=== PATIENT | male | born 1950 | race Caucasian/White ===

== ENCOUNTER → 2019-06-18 13:18 | Outpatient (CLI) | payer MEDICARE, SELFPAY ==
--- NOTE | 2019-06-18 13:24 | XR_ITS ---
PROCEDURE: XR KNEE RT 4V CLINICAL INDICATION: Rt knee pain Right knee pain with popping COMPARISON: KNEE3R KNEE-3 VIEWS-RT from 03/17/2015 [id number] KNEE-4 OR 5 VIEWS-LT from 05/13/2015 FINDINGS: No fracture or dislocation. No lytic or blastic change. There is normal mineralization. There are moderate osteoarthritic changes of the medial compartment and patellofemoral joint. 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 MRI may confirm location. The medial joint space has slightly decreased in height compared to the previous exam with mild varus angulation of the tibia. Suspect a small knee joint effusion. Other findings:None. 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
== END ==
PROVIDERS: PCP Internal Medicine Adolescent Medicine; Visit Provider Orthopaedic Surgery
DX: M25.561 Pain in right knee (principal)
CPT/HCPCS: 73564

== ENCOUNTER → 2020-12-08 09:44 | Outpatient (CLI) | payer MEDICARE, SELFPAY ==
--- NOTE | 2020-12-08 09:52 | XR_ITS ---
PROCEDURE: XR KNEE RT 3V CLINICAL INDICATION: ACUTE PAIN OF RT KNEE COMPARISON: CR KNEE3R KNEE-3 VIEWS-RT from 03/17/2015 CR [id number] KNEE-4 OR 5 VIEWS-LT from 05/13/2015 CR XR KNEE RT 4V from 06/18/2019 FINDINGS: No fracture or dislocation. No lytic or blastic change. There is normal mineralization. Moderate osteoarthritic changes are present involving all 3 compartments greatest at the medial compartment and patellofemoral joint. There is a large suprapatellar effusion. A laminated appearing rounded calcific density is present in posterior popliteal region measuring 2 cm not significantly changed Other findings:None. IMPRESSION: Moderate osteoarthritis of the right knee with large suprapatellar knee joint effusion. Laminated 2 cm calcific density in the posterior popliteal fossa possibly due to synovial osteo chondroma within the knee joint bursa or atypical soft tissue calcification. MRI may confirm. Dictated by: Jamie Higgins MD 12/08/2020 10:37 Jamie Higgins MD in [place] 12/08/2020 10:37
== END ==
PROVIDERS: PCP Internal Medicine Adolescent Medicine; Visit Provider Internal Medicine Adolescent Medicine
DX: M25.561 Pain in right knee (principal)
CPT/HCPCS: 73562

== ENCOUNTER → 2021-01-05 09:27 | Outpatient (CLI) | payer MEDICARE, SELFPAY ==
[2021-01-05 11:22] LABS: Chloride 103 mmol/L (98-107); Potassium 4.5 mmoL/L (3.5-5.1); Sodium 137 mmol/L (136-145)
[2021-01-05 11:25] LABS: Blood Urea Nitrogen 14 mg/dl (9-20); Estimated Glomerular Filt Rate 66 ml/min (>60); GFR (African American) 80 ML/MIN (>60)
[2021-01-05 11:26] LABS: Anion Gap 10.5 mEq/L (5-15); Calcium 8.9 mg/dl (8.4-10.2); Carbon Dioxide 28 mmol/L (22.0-30.0); Glucose 96 mg/dl (74-100)
== END ==
PROVIDERS: Visit Provider Internal Medicine Adolescent Medicine
DX: R79.89 Other specified abnormal findings of blood chemistry (principal)
CPT/HCPCS: 36415; 80048

== ENCOUNTER → 2021-02-16 14:12 | Outpatient (CLI) | payer MEDICARE, SELFPAY ==
--- NOTE | 2021-02-16 14:15 | MR_ITS ---
PROCEDURE INFORMATION: Exam: MR Right Lower Extremity Joint Without Contrast, Knee Exam date and time: 02/16/2021 2:15 PM Age: 71 years old Clinical indication: Patient HX: PT slipped off curb and twisted knee 2 months ago, swelling, right anterior knee pain below patella. Previous torn meniscus. ; Additional info: Acute pain of right knee TECHNIQUE: Imaging protocol: MR of the Right lower extremity joint without contrast. Exam focused on the knee. COMPARISON: 1. CR XR KNEE RT 3V 12/08/2020 9:57 AM 2. CR XR KNEE RT 4V 06/18/2019 1:41 PM 3. CR KNEE3R KNEE-3 VIEWS-RT 03/17/2015 8:58 AM FINDINGS: Limitations: Motion artifact. Bones and cartilage: The tibial tubercle is chronically enlarged. There is grade IV (out of IV) full-thickness cartilage loss involving a significant portion of the medial compartment. Edema-like signal in the bone marrow is associated with overlying cartilage loss. There is grade III (out of IV) high-grade partial-thickness cartilage loss involving the lateral patellofemoral joint. There is grade II (out of IV) low-grade partial-thickness cartilage loss involving the lateral compartment. There is mild lateral subluxation of the patella. Joint spaces: A moderate joint effusion involves the knee. Periarticular cysts: There is a 1.9 cm osteochondral body in the popliteal cyst. The popliteal cyst also contains rectangular fragments of presumed cartilage measuring 1.3 x 0.2 cm and 0.6 x 0.2 cm. A small popliteal cyst has ruptured into the distal thigh and proximal calf. Medial meniscus: Complex tearing involves the body and posterior horn of the medial meniscus with abnormal signal extending to both the superior and inferior meniscal surfaces. Lateral meniscus: The lateral meniscus demonstrates mucinous degeneration without tear. Anterior cruciate ligament: The anterior cruciate ligament is thin, which may be developmental or due to a remote low-grade partial-thickness tear. Posterior cruciate ligament: The posterior cruciate ligament is intact. Medial capsule and supporting structures: The medial collateral ligament is intact. Lateral capsule and supporting structures: Abnormal increased T2 signal within the proximal fibular collateral ligament is consistent with a low-grade partial-thickness tear (grade II injury). Extensor mechanism of knee: Mild tendinosis involves the patellar tendon. The quadriceps tendon is intact with a normal striated appearance. Muscles: Unremarkable. Soft tissues: There is a mild amount of edema in the subcutaneous fat. IMPRESSION: 1. Complex tearing of the medial meniscus body and posterior horn. 2. Extensive grade IV (out of IV) full-thickness cartilage loss involving the medial joint compartment, consistent with severe primary osteoarthritis. 3. Presumed cartilage fragments in the popliteal cyst measuring 1.3 x 0.2 cm and 0.6 x 0.2 cm. 4. Grade III (out of IV) high-grade partial-thickness cartilage loss of the lateral patellofemoral joint with lateral subluxation of the patella. 5. Fibular collateral ligament low-grade partial-thickness tear (grade II injury). 6. Ruptured popliteal cyst.
== END ==
PROVIDERS: PCP Internal Medicine Adolescent Medicine; Visit Provider Internal Medicine Adolescent Medicine
DX: M25.561 Pain in right knee (principal)
CPT/HCPCS: 73721

== ENCOUNTER → 2021-04-15 12:22 | Outpatient (CLI) | payer MEDICARE, SELFPAY ==
[2021-04-15 12:52] LABS: Basophils # 0.1 K/mm3 (0-0.2); Basophils % 0.6 % (0.1-2.0); Eosinophils # 0.1 K/mm3 (0.0-0.4); Eosinophils % 0.5 % (0.1-12.0); Hematocrit 45.1 % (42.0-52.0); Hemoglobin 14.8 g/dL (14.1-18.0); Lymphocytes # 1.9 K/mm3 (0.7-4.5); Lymphocytes % 18.1 % (10-50); Mean Corpuscular HGB Conc 32.8 g/dL (31.8-35.4); Mean Corpuscular Hemoglobin 30.4 pg (27.0-31.2); Mean Corpuscular Volume 92.8 fl (80-94); Mean Platelet Volume 8.4 fl (7.4-10.4); Monocytes # 0.5 K/mm3 (0.1-1.0); Monocytes % 4.3 % (1.7-9.3); Neutrophils # 8.2 K/mm3 (1.8-7.8); Neutrophils % 76.5 % (37.0-80.0); Platelet Count 391 K/mm3 (142-424); Red Blood Count 4.86 M/mm3 (4.60-6.20); Red Cell Distribution Width 13.7 % (11.5-17.5); White Blood Count 10.7 K/mm3 (4.8-10.8)
[2021-04-15 13:40] LABS: Alanine Aminotransferase 20 U/L (12-78); Albumin Level 4.4 g/dl (3.5-5.0); Albumin/Globulin Ratio 1.6 (1.1-1.8); Alkaline Phosphatase 62 U/L (38-126); Anion Gap 12.8 mEq/L (5-15); Aspartate Amino Transferase 24 U/L (17-59); Bilirubin,Total 0.3 mg/dl (0.2-1.3); Blood Urea Nitrogen 15 mg/dl (9-20); Calcium 9.8 mg/dl (8.4-10.2); Carbon Dioxide 31 mmol/L (22.0-30.0); Chloride 102 mmol/L (98-107); Cholesterol 154 mg/dl (140-200); Estimated Glomerular Filt Rate 73 ml/min (>60); GFR (African American) 89 ML/MIN (>60); Globulin 2.8 g/dL (1.3-3.2); Glucose 97 mg/dl (74-100); HDL Cholesterol 76 mg/dl (40-60); Potassium 4.8 mmoL/L (3.5-5.1); Sodium 141 mmol/L (136-145); Total Protein,Serum 7.2 g/dl (6.3-8.2); Triglycerides 66 mg/dl (30-150); VLDL Cholesterol 13 mg/dL (0-40)
[2021-04-15 13:51] LABS: Direct LDL Cholesterol 61.67 mg/dL (100-129)
[2021-04-15 13:56] LABS: 25-OH Vitamin D, Total 72.9 ng/mL (30-100)
[2021-04-15 14:11] LABS: Thyroid Stimulating Hormone 1.16 uIU/mL (0.465-4.68)
== END ==
PROVIDERS: Visit Provider Internal Medicine Adolescent Medicine
DX: E03.9 Hypothyroidism, unspecified (principal); E78.5 Hyperlipidemia, unspecified; E55.9 Vitamin D deficiency, unspecified
CPT/HCPCS: 36415; 80053; 80061; 82306; 84443; 85025

== ENCOUNTER → 2021-05-27 07:23 | Outpatient (CLI) | payer MEDICARE, SELFPAY | PROVIDERS: Visit Provider Surgery | DX: Z01.812 Encounter for preprocedural laboratory examination (principal); Z11.52 Encounter for screening for COVID-19; R22.1 Localized swelling, mass and lump, neck; M67.40 Ganglion, unspecified site | CPT/HCPCS: C9803; U0003; U0005 ==

== ENCOUNTER 2021-05-29 06:30 | Day surgery (SDC) | payer MEDICARE, SELFPAY ==
[2021-05-26 10:53] VITALS: BMI 29.5
[2021-05-29 06:46] VITALS: BP 132/67; PULSE 61; RESP 18; TEMP 36.8; O2SAT 96
--- NOTE | 2021-05-29 07:54 | HMH.OPNOTE ---
Date of procedure: 05/29/21 Pre-op Diagnosis:: Right posterior neck mass (2 cm) Post-op Diagnosis:: Same Procedure performed:: Excision of 2 cm right posterior neck mass Surgeon:: Samuel Miller MD Anesthesia: local Estimated blood loss (mL): 5 Operative findings:: Complex lobulated lipomatous-appearing mass Operative note:: After informed consent was obtained the patient was taken to the procedure room. He was maintained in a seated position. His posterior neck was prepped and draped in a sterile fashion. After infiltration local anesthetic an incision was made overlying the palpable lesion. The deep subcutaneous tissue was dissected with a combination of scalpel and electrocautery. A complex/lobulated lipomatous-appearing lesion was excised and passed off for pathologic evaluation. Electrocautery was utilized to achieve hemostasis. Skin was then reapproximated with interrupted 4-0 nylon. Dressings were applied and the patient was discharged in stable condition. Condition: stable Disposition: no change Specimens:: Right posterior neck mass Complications:: No immediate
[2021-05-29 07:55] VITALS: BP 162/83; PULSE 61; RESP 16; TEMP 36.5; O2SAT 95
== END 2021-05-29 08:05 | disposition home or self-care (01) ==
LOC: OUTP 06:33
PROVIDERS: PCP Internal Medicine Adolescent Medicine; Visit Provider Surgery
DX: D17.9 Benign lipomatous neoplasm, unspecified; E03.9 Hypothyroidism, unspecified
CPT/HCPCS: 21550; 88304

== ENCOUNTER → 2022-08-10 09:06 | Outpatient (CLI) | payer MEDICARE, SELFPAY ==
--- NOTE | 2022-08-10 09:20 | XR_ITS ---
FINAL REPORT CLINICAL HISTORY: knee pain FINDINGS: AP, lateral and oblique views of the right knee were obtained. Comparison is made to an exam dated November 2020. There is no acute osseous abnormality of the knee. There has been progression of degenerative disease with canal near complete loss of medial joint space. There is a small joint effusion. Posterior calcification is likely within a popliteal cyst and is unchanged. IMPRESSION: Progressed degenerative disease. Reviewed, Interpreted and Dictated by Dayanna Verdugo MD Transcribed by Theron Amezquita Authenticated and [facility]
--- NOTE | 2022-08-10 09:20 | XR_ITS ---
FINAL REPORT CLINICAL HISTORY: knee pain FINDINGS: AP, lateral and oblique views of the left knee were obtained. There is no prior exam for comparison. There is no acute osseous abnormality of the left knee. Mild degenerative disease. The soft tissues are normal. There is no joint effusion. IMPRESSION: No acute osseous abnormality of the left knee. Reviewed, Interpreted and Dictated by Dayanna Verdugo MD Transcribed by Theron Amezquita Authenticated and [facility]
== END ==
PROVIDERS: PCP Internal Medicine Adolescent Medicine; Visit Provider Orthopaedic Surgery
DX: M25.562 Pain in left knee (principal); M25.561 Pain in right knee
CPT/HCPCS: 73562

== ENCOUNTER 2023-02-10 07:19 | Day surgery (SDC) | payer MEDICARE, SELFPAY ==
[2023-01-26 13:02] VITALS: BMI 30.2
[2023-02-10 07:43] VITALS: BP 149/73; PULSE 57; RESP 18; TEMP 36.1; O2SAT 98
--- NOTE | 2023-02-10 08:35 | EXP.ANES.CKL ---
[facility] Disclaimer: The information contained in this section may have been updated after the patient was seen, as this information can be updated by other users. Medical History Hyperlipidemia Hypothyroid Primary osteoarthritis of left knee Primary osteoarthritis of right knee Surgical History History of back surgery History of umbilical hernia repair Hx of bilateral inguinal hernia repair Hx of neck surgery Family History Other Family history of cardiac arrhythmia Family history of diabetes mellitus in paternal grandmother Social History Smoking Status: Former smoker quit date: 10/26/74 alcohol intake: current substance use type: denies use current occupational status: retired Travel in the last 8 weeks: None household members: spouse housing: house lives independently: No marital status: education level: college service: No caffeine: Yes special german needs: No agree to transfusion: No do you feel safe at home: Yes victim of physical abuse: No victim of emotional abuse: No victim of sexual abuse: No would you like helpful sources: No [facility] Anesthesia Checklist Patient Identification Patient Identification: Arm Band and Verbal (Name & ) Structural Data Admitted From: Home Planned Operative Procedure/s: Colonoscopy Consent for Planned Operative Procedure(s) Verified: Yes NPO Status Verified Time NPO: 00:00 Additional verifications Anesthesia Reactions: No Hx Blood Transfusions: No Blood Transfusion Reaction: No Airway Assessment C-Spine Mobility Assessed: Yes TMJ Mobility Assessed: Yes Dentition: Good Dentition Neurological Assessment Level of Consciousness: Awake Hx Seizures: No Numbness or tingling in extremities: No Anesthesia Plan Anesthesia Risk discussed: Yes Anesthesia Plan: Verified ASA Class: II Anesthesia Type: MAC
[2023-02-10 08:59] VITALS: O2SAT 99
--- NOTE | 2023-02-10 09:19 | HMH.SCOPE ---
Procedure: Date: 02/10/23 Patient Date of :: 1950 Procedure Performed:: Colonoscopy and polypectomy Indications:: Personal history of polyps Performing Provider:: Garry Scott MD Referring Provider:: Jason Mckeon MD Sedation:: Propofol Procedure:: After placing the patient in the left lateral decubitus position, the colonoscopy was gently inserted into the rectum and under direct visualization advanced to the cecum which was identified by transillumination in the right lower quadrant, identification of the ileocecal valve, appendiceal orifice, and cecal strap. Color, texture, mucosa, and anatomy of the colon were carefully examined with the scope. Findings:: Anal canal: normal Rectum: normal Sigmoid colon: normal without polyps or inflammatory changes Descending colon: normal without polyps or inflammatory changes Splenic flexure: normal Transverse colon: 0.5 cm adenomatous polyp identified and removed with snare. Hepatic flexure: normal Ascending colon: normal without polyps or inflammatory changes Cecum: normal Terminal ileum: not visualized Impression: Polyp of transverse colon Specimens:: Polyp Recommendations:: Follow up examination in about THREE-FIVE years or so, sooner if clinically indicated. Complications:: None Estimated blood obtained (mL): 0 Colonoscopy Component Colonoscopy Component Was a colonoscopy performed during today's procedure?: Yes Recommended follow up colonoscopy of at least 10 years?: No If no, follow up colonoscopy recommended in ___ years?: Three Reason for not recommending >/= 10 yr follow-up interval?: Recurrent polyp identified
[2023-02-10 09:23] VITALS: BP 86/54; PULSE 54; RESP 18; TEMP 36.4; O2SAT 93
[2023-02-10 09:33] VITALS: BP 107/74; PULSE 48; RESP 18; TEMP 36.4; O2SAT 95
[2023-02-10 09:43] VITALS: BP 127/71; PULSE 57; RESP 18; TEMP 36.4; O2SAT 95
[2023-02-10 09:58] VITALS: BP 142/68; PULSE 54; RESP 18; TEMP 36.4; O2SAT 95
== END 2023-02-10 09:58 | disposition home or self-care (01) ==
PROVIDERS: PCP Internal Medicine Adolescent Medicine; Visit Provider Internal Medicine Gastroenterology
PROC: 0DJD8ZZ Inspection of Lower Intestinal Tract, Via Natural or Artificial Opening Endoscopic (ICD-10-PCS; CPT 45378; principal; 2023-02-10 09:00)
DX: Z12.11 Encounter for screening for malignant neoplasm of colon (principal); Z86.010 Personal history of colon polyps; D12.3 Benign neoplasm of transverse colon
CPT/HCPCS: 45385; 88305

== ENCOUNTER 2025-06-06 06:59 | Day surgery (SDC) | payer MEDICARE, SELFPAY ==
[2025-06-05 16:34] VITALS: BMI 29.5
[2025-06-06 07:15] VITALS: BP 171/88; PULSE 51; RESP 18; TEMP 36.1; O2SAT 99
[2025-06-06] MEDS: LIDOCAINE 1% 20ML MDV 20 ML (09:03)
[2025-06-06 09:30] VITALS: BP 156/80; PULSE 53; RESP 18; TEMP 36.1; O2SAT 99
--- NOTE | 2025-06-06 09:32 | EXP.OP.NOTE ---
Date of procedure: 06/06/25 Pre-op Diagnosis:: Skin neoplasm of uncertain behavior along mid chest (1 cm) Post-op Diagnosis:: Same Procedure performed:: Excision of 1 cm skin lesion from mid chest Surgeon:: Samuel Miller MD Anesthesia: local Estimated blood loss (mL): 5 Operative findings:: Lesion excised in toto Operative note:: After informed consent was obtained the patient was taken to the procedure room. His mid chest region was prepped and draped in a sterile fashion. After infiltration with local anesthetic an elliptical incision was made around the lesion. The lesion was sharply excised to the level of the deep subcutaneous tissue (in toto) before being passed off for pathologic evaluation. A focus of bleeding was controlled with 3-0 Vicryl in a [id number] fashion. Thermal cautery was utilized to complete hemostasis. Skin was then reapproximated with interrupted 4-0 nylon in a mattress fashion. Dressings were applied and the patient was discharged home in stable condition Condition: stable Disposition: no change Specimens:: Mid chest skin lesion Complications:: No immediate
== END 2025-06-06 09:46 | disposition home or self-care (01) ==
PROVIDERS: PCP Internal Medicine Adolescent Medicine; Visit Provider Surgery
PROC: (CPT 11601; principal; 2025-06-06 08:15)
DX: C44.529 Squamous cell carcinoma of skin of other part of trunk (principal); E03.9 Hypothyroidism, unspecified; E78.5 Hyperlipidemia, unspecified; M17.0 Bilateral primary osteoarthritis of knee; Z87.891 Personal history of nicotine dependence
CPT/HCPCS: 11601; 88305; J2003